=== PATIENT | female | born 1960 | race Caucasian/White ===

== ENCOUNTER 2023-09-14 08:56 | Outpatient (CLI) | payer MEDICARE | END 2023-09-14 08:57 | disposition home or self-care (01) | LOC: NAV RAD 08:56 | PROVIDERS: ATTEND Family Medicine | DX: M16.0 Bilateral primary osteoarthritis of hip (principal); M47.898 Other spondylosis, sacral and sacrococcygeal region | CPT/HCPCS: 73523 ==